=== PATIENT | female | born 1960 | race Caucasian/White ===

== ENCOUNTER 2021-10-01 17:58 | Inpatient (IN) ==
[2021-10-01] MEDS ORDERED: Potassium Chloride Elixir 20 MEQ/15 ML UDC PO ONE (21:52)
[2021-10-01] MEDS ORDERED: Melatonin 3 MG TABLET PO PRN (22:21)
[2021-10-01] MEDS ORDERED: Naloxone 0.4 MG/ML INJ IVP PRN (22:21)
[2021-10-01] MEDS ORDERED: MOM Conc 10 ML UD.LIQ PO PRN (22:21)
[2021-10-01] MEDS ORDERED: *HR* Promethazine 25 MG/ML VIAL IM PRN (22:21)
[2021-10-01] MEDS ORDERED: Acetaminophen 325 MG TABLET PO PRN (22:21)
[2021-10-01 23:21] LABS: Calcium 8.4 mg/dL (8.6-10.3); Magnesium 2.5 mg/dL (1.6-2.6); Potassium 1.7 mEq/L (3.5-5.1); Troponin I 0.07 ng/mL (< 0.04)
[2021-10-01] MEDS ORDERED: 0.9 % Sodium Chloride w KCl 40 MEQ/1,000 ML MLS IVC SCH (23:30)
[2021-10-02] MEDS ORDERED: Potassium Phosphate 44 MEQ in 0.9 % Sodium Chloride 250 ML IVPB ONE ×2 (01:15→14:27)
[2021-10-02 01:37] LABS: Basophils # 0.1 K/mcL (0.0-0.2); Basophils % 0.4 %; Eosinophils # 0.1 K/mcL (0.0-0.6); Eosinophils % 0.6 %; Hematocrit 39.6 % (35.3-44.9); Hemoglobin 13.1 g/dL (11.5-15.4); Immature Granulocytes % 0.5 % (0-4); Lymphocytes # 1.7 K/mcL (0.6-4.6); Lymphocytes % 10.9 %; Mean Corpuscular HGB Conc 33.1 g/dL (31.6-35.5); Mean Corpuscular Volume 96.8 fL (83.0-100.0); Mean Platelet Volume 10.2 fL (9.4-12.4); Monocytes # 0.8 K/mcL (0.0-1.3); Monocytes % 4.9 %; Neutrophils # 13.1 K/mcL (1.6-8.9); Platelet Count 231 K/mcL (140-400); Red Blood Count 4.09 M/mcL (3.82-4.97); Red Cell Distribution Width 14.8 % (11.5-14.5); Segmented Neutrophils % 82.7 %; White Blood Count 15.8 K/mcL (4.3-11.1)
[2021-10-02] MEDS ORDERED: Perflutren Lipid Microsphere 1.3 ML in 0.9 % Sodium Chloride 8.7 ML IVP PRN (01:38)
[2021-10-02] MEDS ORDERED: Potassium Phosphate 44 MEQ in D5% in Water 250 ML IVPB ONE (01:45)
[2021-10-02] MEDS ORDERED: *HR* Heparin 5,000 UNIT/ML VIAL IVP PRN ×4 (01:46→17:02)
[2021-10-02] MEDS ORDERED: *HR* Heparin 5,000 UNIT/ML VIAL IVP ONE ×2 (01:46→17:02)
[2021-10-02] MEDS ORDERED: Heparin 25,000UNIT/250ML 1/2NS 25,000 UNIT/250 ML IV.SOLN IVC SCH (02:00)
[2021-10-02 02:17] LABS: Potassium,Urine 17.3 mEq/L; Sodium, Urine 28.8 mEq/L
[2021-10-02] MEDS: Ringers Solution, Lactated 1,000 ML IVC SCH ×3 (02:32→22:31)
[2021-10-02 03:30] LABS: VBG HCO3 14 mEq/L (21-27); VBG PCO2 40 mmHg (41-51); VBG PH 7.14 pH Units (7.32-7.42); VBG PO2 39 mmHg (25-50)
[2021-10-02 06:07] LABS: Troponin I 0.06 ng/mL (< 0.04)
[2021-10-02 07:18] LABS: Calcium 7.7 mg/dL (8.6-10.3); Potassium 1.9 mEq/L (3.5-5.1)
[2021-10-02 09:06] LABS: Magnesium 2.4 mg/dL (1.6-2.6); Phosphorous 2.3 mg/dL (2.7-4.5)
[2021-10-02 10:56] LABS: Calcium 7.6 mg/dL (8.6-10.3)
[2021-10-02 13:58] LABS: VBG HCO3 14 mEq/L (21-27); VBG PCO2 35 mmHg (41-51); VBG PH 7.21 pH Units (7.32-7.42); VBG PO2 47 mmHg (25-50)
[2021-10-02 14:21] LABS: Calcium 7.6 mg/dL (8.6-10.3); Potassium 2.2 mEq/L (3.5-5.1)
[2021-10-02] MEDS ORDERED: *HR* Heparin 5,000 UNIT/ML VIAL SQ SCH (18:00)
[2021-10-02 18:33] LABS: Calcium 7.6 mg/dL (8.6-10.3); Potassium 2.2 mEq/L (3.5-5.1)
[2021-10-02] MEDS: Heparin 25,000UNIT/250ML 1/2NS 25,000 UNIT/250 ML IV.SOLN IVC SCH (19:13)
[2021-10-02 21:45] LABS: Heparin anti-factor XA UFH 0.2 IU/mL (0.30-0.70)
[2021-10-02 21:47] LABS: Calcium 7.9 mg/dL (8.6-10.3); Potassium 2.3 mEq/L (3.5-5.1)
[2021-10-03] MEDS ORDERED: Potassium Phosphate 44 MEQ in 0.9 % Sodium Chloride 250 ML IVPB ONE (01:30)
[2021-10-03 01:40] LABS: Basophils # 0.1 K/mcL (0.0-0.2); Basophils % 0.6 %; Eosinophils # 0.2 K/mcL (0.0-0.6); Eosinophils % 1.9 %; Hematocrit 32.5 % (35.3-44.9); Immature Granulocytes % 0.9 % (0-4); Lymphocytes # 1.5 K/mcL (0.6-4.6); Lymphocytes % 14.3 %; Mean Corpuscular HGB Conc 34.5 g/dL (31.6-35.5); Mean Corpuscular Hemoglobin 32.9 pg (28.0-33.3); Mean Corpuscular Volume 95.6 fL (83.0-100.0); Mean Platelet Volume 9.9 fL (9.4-12.4); Monocytes # 0.4 K/mcL (0.0-1.3); Monocytes % 3.8 %; Neutrophils # 8.1 K/mcL (1.6-8.9); Platelet Count 177 K/mcL (140-400); Red Cell Distribution Width 14.8 % (11.5-14.5); Segmented Neutrophils % 78.5 %; White Blood Count 10.3 K/mcL (4.3-11.1)
[2021-10-03 01:41] LABS: Hemoglobin 11.2 g/dL (11.5-15.4)
[2021-10-03] MEDS ORDERED: 0.9 % Sodium Chloride 500 ML IV ONE (01:48)
[2021-10-03 01:59] LABS: Calcium 7.4 mg/dL (8.6-10.3); Potassium 2.6 mEq/L (3.5-5.1)
[2021-10-03] MEDS: Ringers Solution, Lactated 1,000 ML IVC SCH ×2 (08:03→17:46)
[2021-10-03] MEDS: Heparin 25,000UNIT/250ML 1/2NS 25,000 UNIT/250 ML IV.SOLN IVC SCH (15:15)
[2021-10-04 01:37] LABS: Basophils # 0.1 K/mcL (0.0-0.2); Eosinophils # 0.2 K/mcL (0.0-0.6); Eosinophils % 2.8 %; Hematocrit 29.7 % (35.3-44.9); Hemoglobin 9.6 g/dL (11.5-15.4); Immature Granulocytes % 2.2 % (0-4); Lymphocytes # 1.8 K/mcL (0.6-4.6); Lymphocytes % 23.4 %; Mean Corpuscular HGB Conc 32.3 g/dL (31.6-35.5); Mean Corpuscular Hemoglobin 31.6 pg (28.0-33.3); Mean Corpuscular Volume 97.7 fL (83.0-100.0); Monocytes # 0.5 K/mcL (0.0-1.3); Platelet Count 147 K/mcL (140-400); Red Blood Count 3.04 M/mcL (3.82-4.97); Segmented Neutrophils % 64.6 %; White Blood Count 7.8 K/mcL (4.3-11.1)
[2021-10-04 01:56] LABS: Calcium 7.3 mg/dL (8.6-10.3); Potassium 2.7 mEq/L (3.5-5.1)
[2021-10-04 01:57] LABS: Magnesium 1.7 mg/dL (1.6-2.6); Phosphorous 2.3 mg/dL (2.7-4.5)
[2021-10-04] MEDS: Ringers Solution, Lactated 1,000 ML IVC SCH (06:01)
[2021-10-04] MEDS ORDERED: Potassium Phosphate 44 MEQ in 0.9 % Sodium Chloride 250 ML IVPB ONE (07:19)
[2021-10-04] MEDS: Heparin 25,000UNIT/250ML 1/2NS 25,000 UNIT/250 ML IV.SOLN IVC SCH (08:14)
[2021-10-05 06:30] LABS: Magnesium 1.7 mg/dL (1.6-2.6); Phosphorous 2.5 mg/dL (2.7-4.5)
[2021-10-05 06:33] LABS: Calcium 8.1 mg/dL (8.6-10.3); Potassium 3.6 mEq/L (3.5-5.1)
[2021-10-05] MEDS: Heparin 25,000UNIT/250ML 1/2NS 25,000 UNIT/250 ML IV.SOLN IVC SCH (06:39)
[2021-10-05 08:59] LABS: Hematocrit 32.2 % (35.3-44.9); Hemoglobin 10.2 g/dL (11.5-15.4)
[2021-10-05 09:03] VITALS: BP 90/62; PULSE 72; TEMP 98.5; O2SAT 100
[2021-10-05 10:43] LABS: Potassium,Urine 31.5 mEq/L; Sodium, Urine 74.6 mEq/L
[2021-10-05] MEDS ORDERED: Apixaban 5 MG TABLET PO SCH (12:00)
== END 2021-10-05 13:02 | disposition home health service (06) | DRG 682 ==
LOC: 2ANU → SUATTDRO 20:27
PROVIDERS: ADMIT Internal Medicine; ATTEND Internal Medicine